=== PATIENT | female | born 1995 | race Caucasian/White ===

== ENCOUNTER 2023-05-18 20:26 | Outpatient (REF) | payer BC, SELFPAY ==
[2023-05-22 19:08] LABS: Age Gdln ACOG Testing Note (.); IGP, rfx Aptima HPV ASCU Note (.)
== END 2023-05-18 20:27 | disposition home or self-care (01) ==
LOC: LAB 20:26
PROVIDERS: Visit Provider Physician Assistant
DX: Z01.419 Encounter for gynecological examination (general) (routine) without abnormal findings (principal)
CPT/HCPCS: G0145

== ENCOUNTER 2023-11-20 14:56 | Outpatient (OUT) | payer BC, SELFPAY ==
--- NOTE | 2023-11-20 14:57 | US_ITS ---
The [address] [address] Patient Name: BHARATH HARO MRN: [id number] date: 1995 Sex: F Assigned Patient Location: Current Patient Location: Accession/Order Number: [id number] Exam Date: 11/20/2023 15:00 Report Date: 11/21/2023 06:48 At the request of: AMI IVY Procedure: US pelvis w/ transvaginal EXAMINATION: US pelvis w/ transvaginal HISTORY: Pelvic Pain COMPARISON: No relevant comparison available. TECHNIQUE: Transabdominal and/or transvaginal sonographic examination was performed as indicated by examination type. FINDINGS: UTERUS: Bicornuate uterus. Uterus size: 9.2 x 7.1 x 4.8 cm. ENDOMETRIUM: Normal homogeneous appearance. Endometrial thickness: 6 mm RIGHT OVARY: Normal size and appearance. Duplex Doppler demonstrates normal waveform and flow; resistive index 0.7. Ovary size: 3.4 x 3.4 x 1.9 cm LEFT OVARY: Normal size and appearance. Duplex Doppler demonstrates normal waveform and flow; resistive index 0.5. Ovary size: 3.0 x 2.5 x 1.9 cm CUL-DE-SAC: Small amount of fluid in pelvic cul-de-sac, likely physiologic. BLADDER: Unremarkable. OTHER: None. US/US pelvis w/ transvaginal IMPRESSION: 1. Bicornuate uterus. 2. Small amount of free fluid within pelvic cul-de-sac, likely physiologic. Possibly recently ruptured ovarian cyst. 3. No acute findings to account for patient's symptoms. Electronically authenticated by: MARLIN SAINI Date: 11/21/2023 06:48
== END 2023-11-20 14:57 | disposition home or self-care (01) ==
LOC: US 14:56
PROVIDERS: Visit Provider Physician Assistant
DX: R10.2 Pelvic and perineal pain (principal); Q51.3 Bicornate uterus
CPT/HCPCS: 76830; 76856

== ENCOUNTER 2024-06-07 18:22 | Outpatient (REF) | payer BC, SELFPAY ==
--- OUTSIDE RECORDS SUMMARY | 2024-06-07 18:27 | XMS_ITS | CCD ---
Author Organization [facility] Care Team Providers Care Information Systems Security Analyst Name Role Phone Provider, None Primary Care Unavailable OMKAR, DR CAMPBELL Consulting Unavailable MISC, DR HERRON Primary Care Unavailable DR SHANNAN ESPITIA Attending Unavailable OMKAR, DR CAMPBELL Admitting Unavailable Efra UPPER LINING CEMENTER - Jayne MCCOLLUM Primary Care Provider JAYNE KRAUS Referring Unavailable EFRA, JAYNE Primary Care Unavailable EFRAJAYNE LOREDO Referring Unavailable EFRA, JAYNE Primary Care Unavailable BIJU, PATRICIA Attending Unavailable BIJU, PATRICIA Attending Unavailable BIJU, PATRICIA Attending Unavailable BIJU, PATRICIA Attending Unavailable BIJU, PATRICIA Attending Unavailable BIJU, PATRICIA Attending Unavailable Unavailable Primary Care Provider Unavailabl e Medications Current Medications Medication Drug Class(es) Dates Sig (Normalized) Sig (Original) Clindamycin (2 sources) Lincosamide Antibacterial Start: 11-19-2023 End: 11-19-2023 Clindamycin Phosphate (Xaciato) 2 % gel Indications: BV (bacterial vaginosis) Insert 1 Application into the vagina 1 time for 1 dose 1 g 11/19/2023 11/19/2023 Active etonogestrel 68 mg drug implant (3 sources) Progestin Start: 06-10-2023 End: 06-09-2026 etonogestrel-elutin g 68 mg contraceptive implant 1 each ferrous sulfate 325 mg oral tablet (5 sources) Start: 04-12-2024 take 1 tablet by mouth once daily Ferrous Sulfate 325 mg (65 mg iron) tablet Active 325 MG PO Daily April 12, 2024 12:00am take 1 tablet by mouth at mealti me ferrous sulfate 325 (65 Fe) MG tablet Take 325 mg by mouth in the morning. Take with meals. Active methylPREDNISolone 4 mg oral tablet (3 sources) Corticosteroid Start: 04-21-2024 take 1 tablet by mouth once Methylprednisolone (Medrol (Erick)) 4 mg tablets,dose pack Active 0 PO per package directions April 21, 2024 12:00am PO PER PKG DIR for 6 days Start: 12-11-2023 End: 04-12-2024 take 1 tablet by mouth once Methylprednisolone (Medrol (Erick)) 4 mg tablets,dose pack Discontinued 0 PO per package directions December 10, 2023 11:00pm April 12, 2024 1:30pm PO PER PKG DIR Completed/Discontinued Medications Medication Drug Class(es) Dates Sig (Normalized) Sig (Original) amoxicillin 500 mg oral capsule (2 sources) Penicillin-class Antibacterial Start: 12-11-2023 End: 04-12-2024 take 1 capsule by mouth twice daily Amoxicillin 500 mg capsule Discontinued 500 MG PO Twice daily 20 December 10, 2023 11:00pm April 12, 2024 1:31pm azithromycin 500 mg oral tablet (3 sources) Macrolide Antimicrobial Start: 12-09-2023 End: 04-12-2024 Azithromycin 500 mg tablet Discontinued MG PO December 08, 2023 11:00pm April 12, 2024 1:30pm Start: 12-09-2023 Azithromycin A ctive MG PO December 09, 2023 12:00am Ciprofloxacin-Dexamethasone 0.3-0.1 % drops,suspension (2 sources) Start: 12-09-2023 End: 04-12-2024 Ciprofloxacin-Dexamethasone 0.3-0.1 % drops,suspension Discontinued 4 DROPS OTIC Twice daily 7.5 7 December 08, 2023 11:00pm April 12, 2024 1:30pm doxycycline hyclate 100 mg o ral tablet (3 sources) Tetracyc line-cla ss Drug Start: 12-09-2023 End: 04-12-2024 Doxycycline Hyclate 100 mg capsule Discontinued MG PO December 08, 2023 11:00pm April 12, 2024 1:30pm Start: 12-09-2023 Doxycycline Hy clate Active MG PO December 09, 2023 12:00am metroNIDAZOLE 500 mg oral tablet (3 sources) Nitroimidazole Antimicrobial Start: 12-09-2023 End: 04-12-2024 Metronidazole 500 mg tablet Discontinued MG PO December 08, 2023 11:00pm April 12, 2024 1:37pm Start: 12-09-2023 Metronidazole Active MG PO December 09, 2023 12:00am moxifloxacin 400 mg oral tablet (3 sources) Quinolone Antimicrobial Start: 12-09-2023 End: 04-12-2024 Moxifloxacin 400 mg tablet Discontinued MG PO December 08, 2023 11:00pm April 12, 2024 1:37pm Start: 12-09-2023 Moxifloxacin A ctive MG PO December 09, 2023 12:00am ondansetron 4 mg disintegrating oral tablet (2 sources) Serotonin-3 Receptor Antagonist Start: 04-12-2024 End: 04-21-2024 take 1 tablet by mouth every eight hours as needed for nausea and vomiting Ondansetron 4 mg tablet,disintegrating Discontinued 4 MG PO Every 8 hours as needed for nausea and vomiting 15 5 April 12, 2024 12:00am April 21, 2024 4:53pm Problems Active Problems Problem Classification Problem Date Documented Da te Episodic/Chronic Immunizations and screening for infectious disease (1 source) Contact with or exposure to other viral diseases; Translations: [Contact with or suspected exposure to severe acute respiratory syndrome coronavirus 2 (SARS-CoV-2)] 04-21-2024 Episodic Influenza (2 sources) Influenza due to Influenza A virus; Translations: [Influenza due to other identified influenza virus with other respiratory manifestations] 04-21-2024 Episodic Intestinal infection (4 sources) Viral gastroenteritis; Translations: [Viral intestinal infection, unspecified] 04-12-2024 Episodic Nutritional deficiencies (2 sources) Iron deficiency; Translations: [Iron deficiency] 04-12-2024 Episodic Other upper respiratory infections (2 sources) Upper respiratory infection; Translations: [Acute upper respiratory infection, unspecified] 12-09-2023 Episodic Otitis media and related conditions (2 sources) Acute right otitis media; Translations: [Otitis media, unspecified, right ear] 12-09-2023 Episodic Substance-related disorders (2 sources) Opioid dependence, uncomplicated; Translations: [Opioid dependence, uncomplicated] Onset: 01-07-2022 Chronic Past or Other Problems Problem Classification Problem Date Documented Da te Episodic/Chronic Fever of unknown origin (4 sources) Fever, unspecified; Translations: [FEVER UNSPECIFIED] Onset: 06-01-2019 Episodic Inflammatory diseases of female pelvic organs (2 sources) Bacterial vaginosis; Translations: [Acute vaginitis] 11-19-2023 Episodic Other aftercare (2 sources) Patient encounter status; 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 [address] Hand Alterations Tailor: Fabricio Rucker MD #### HIVHEMA, PHEP #### [address] [phone] Hand Alterations Tailor: Milton Cárdenas MD Hematocrit (Bld) [Volume fraction] 37.3 % Normal 36.3-47.1 [facility] Comment on above: Performed By: #### C LYLE CP, HCG #### [address] [place] [place] [address] Hand Alterations Tailor: Fabricio Rucker MD #### HIVHEMA, PHEP #### [address] [phone] Hand Alterations Tailor: Milton Cárdenas MD Hemoglobin (Bld) [Mass/Vol] 10.9 g/dL Low 11.9-15.1 [facility] Comment on above: Performed By: #### C LYLE, CP, HCG #### [address] [place] [address] Hand Alterations Tailor: Fabricio Rucker MD #### HIVHEMA, PHEP #### [address] [phone] Hand Alterations Tailor: Milton Cárdenas MD MCH (RBC) [Entitic mass] 21.4 pg Low 25.2-33.5 [facility] Comment on above: Performed By: #### C LYLE, CP, HCG #### [address] [place] [phone] Hand Alterations Tailor: Fabricio Rucker MD #### HIVCMB, PHEP #### [address] [phone] Hand Alterations Tailor: Milton Cárdenas MD MCHC (RBC) [Mass/Vol] 29.2 g/dL Normal 28.4-34.8 [facility] Comment on above: Performed By: #### C BC, CP, HCG #### [facility] [address] [place] [address] [place] [phone] Hand Alterations Tailor: Fabricio Rucker MD #### HIVCMB, PHEP #### [address] [phone] Hand Alterations Tailor: Milton Cárdenas MD MCV (RBC) [Entitic vol] 73.1 fL Low 82.6-102.9 [facility] Comment on above: Performed By: #### C BC, CP, HCG #### [address] [place] [phone] Hand Alterations Tailor: Fabricio Rucker MD #### HIVCMB, PHEP #### [address] [phone] Hand Alterations Tailor: Milton Cárdenas MD NRBC Automated 0.0 per 100 WBC Normal 0.0 [facility] Comment on above: Performed By: #### C BC, CP, HCG #### [address] [place] [phone] Hand Alterations Tailor: Fabricio Rucker MD #### HIVCMB, PHEP #### [address] [phone] Hand Alterations Tailor: Milton Cárdenas MD Platelet mean volume (Bld) [Entitic vol] 9.8 fL Normal 8.1-13.5 [facility] Comment on above: Performed By: #### C BC, CP, HCG #### [facility] [address] [place], [place] [phone] Hand Alterations Tailor: Fabricio Rucker MD #### HIVCMB, PHEP #### [place] [address] [place] [address] Hand Alterations Tailor: Milton Cárdenas MD Platelets (Bld) [#/Vol] 310 10*3/uL Normal 138-453 [facility] Comment on above: Performed By: #### C BC, CP, HCG #### [facility] [address] [place], [place] [phone] Hand Alterations Tailor: Fabricio Rucker MD #### HIVCMB, PHEP #### [address] [address] Hand Alterations Tailor: Milton Cárdenas MD RBC (Bld) [#/Vol] 5.10 10*6/uL Normal 3.95-5.11 [facility] Comment on above: Performed By: #### C BC, CP, HCG #### [address] [place] [phone] Hand Alterations Tailor: Fabricio Rucker MD #### HIVCMB, PHEP #### [address] [address] Hand Alterations Tailor: Milton Cárdenas MD WBC (Bld) [#/Vol] 6.4 10*3/uL Normal 3.5-11.3 [facility] Comment on above: Performed By: #### C BC, CP, HCG #### [facility] [address] [place] [phone] Hand Alterations Tailor: Fabricio Rucker MD #### HIVCMB, PHEP #### [place] [place] [address] Hand Alterations Tailor: Milton Cárdenas MD Hematocrit (Bld) [Volume fraction] 37.3 % 36.3 - 47.1 % [facility] Hemoglobin (Bld) [Mass/Vol] 10.9 g/dL Low 11.9 - 15.1 g/dL [facility] Interpretation and review of laboratory results Abnormal [facility] MCH (RBC) [Entitic mass] 21.4 pg Low 25.2 - 33.5 pg [facility] MCHC (RBC) [Mass/Vol] 29.2 g/dL 28.4 - 34.8 g/dL [facility] MCV (RBC) [Entitic vol] 73.1 fL Low 82.6 - 102.9 fL [facility] NRBC Automated 0.0 0.0 per 100 WBC [facility] Platelet distribution width (Bld) [Ratio] 17.0 % High 11.8 - 14.4 % [facility] Platelet mean volume (Bld) [Entitic vol] 9.8 fL 8.1 - 13.5 fL [facility] Platelets (Bld) [#/Vol] 310 10*3/uL [facility] RBC (Bld) [#/Vol] 5.10 10*6/uL 3.95 - 5.11 m/uL [facility] WBC (Bld) [#/Vol] 6.4 10*3/uL [facility] Comp Metabolic Profon 2021 Albumin [Mass/Vol] 4.7 g/dL Normal 3.5-5.2 [facility] Comment on above: Performed By: #### C BC, CP, HCG #### [facility] [address] [place] [address] Hand Alterations Tailor: Fabricio Rucker MD #### HIVCMB, PHEP #### [facility] [address] [place] [address] Hand Alterations Tailor: Milton Cárdenas MD Albumin/Glob Ratio 1.4 Normal 1.0-2.5 [facility] Comment on above: Performed By: #### C BC, CP, HCG #### [facility] [address] [place], [place] [phone] Hand Alterations Tailor: Fabricio Rucker MD #### HIVCMB, PHEP #### [address] [address] Hand Alterations Tailor: Milton Cárdenas MD Alkaline Phos 93 U/L Normal 35-104 [facility] Comment on above: Performed By: #### C BC, CP, HCG #### [address] [place], [place] [phone] Hand Alterations Tailor: Fabricio Rucker MD #### HIVCMB, PHEP #### [address] [phone] Hand Alterations Tailor: Milton Cárdenas MD ALT [Catalytic activity/Vol] 13 U/L Normal 5-33 [facility] Comment on above: Performed By: #### C BC, CP, HCG #### [address] [place] [phone] Hand Alterations Tailor: Fabricio Rucker MD #### HIVCMB, PHEP #### [address] [address] Hand Alterations Tailor: Milton Cárdenas MD Anion gap [Moles/Vol] 11 mmol/L Normal 9-17 [facility] Comment on above: Performed By: #### C BC, CP, HCG #### [address] [place], [place] [phone] Hand Alterations Tailor: Fabricio Rucker MD #### HIVCMB, PHEP #### [address] [address] Hand Alterations Tailor: Milton Cárdenas MD AST [Catalytic activity/Vol] 19 U/L Normal <32 [facility] Comment on above: Performed By: #### C BC, CP, HCG #### [address] [place], [place] [phone] Hand Alterations Tailor: Fabricio Rucker MD #### HIVCMB, PHEP #### [facility] [address] [place], [place] [phone] Hand Alterations Tailor: Milton Cárdenas MD Bilirubin [Mass/Vol] 0.6 mg/dL Normal 0.3-1.2 [facility] Comment on above: Performed By: #### C BC, CP, HCG #### [facility] [address] [place] [address] [place] [address] Hand Alterations Tailor: Fabricio Rucker MD #### HIVCMB, PHEP #### [place] [address] [place], [place] [phone] Hand Alterations Tailor: Milton Cárdenas MD BUN/CRE Ratio 22 High 9-20 [facility] Comment on above: Performed By: #### C BC, CP, HCG #### [facility] [address] [place] [address] Dr. [place] [phone] Hand Alterations Tailor: Fabricio Rucker MD #### HIVCMB, PHEP #### [address] [phone] Hand Alterations Tailor: Milton Cárdenas MD Calcium [Mass/Vol] 9.5 mg/dL Normal 8.6-10.4 [facility] Comment on above: Performed By: #### C BC, CP, HCG #### [facility] [address] [place] [address] Dr. [place] [phone] Hand Alterations Tailor: Fabricio Rucker MD #### HIVCMB, PHEP #### [place] [address] [place], [place] [phone] Hand Alterations Tailor: Milton Cárdenas MD Chloride [Moles/Vol] 102 mmol/L Normal 98-107 [facility] Comment on above: Performed By: #### C BC, CP, HCG #### [facility] [address] [place] [address] Hand Alterations Tailor: Fabricio Rucker MD #### HIVCMB, PHEP #### [facility] [address] [place], [place] 1886808 Hand Alterations Tailor: Milton Cárdenas MD CO2 [Moles/Vol] 23 mmol/L Normal 20-31 [facility] Comment on above: Performed By: #### C BC, CP, HCG #### [facility] [address] [place] [address] Hand Alterations Tailor: Fabricio Rucker MD #### HIVCMB, PHEP #### [place] [place], [place] [phone] Hand Alterations Tailor: Milton Cárdenas MD Creatinine [Mass/Vol] 0.54 mg/dL Normal 0.50-0.90 [facility] Comment on above: Performed By: #### C BC, CP, HCG #### [facility] [address] [place] [address] [place] [address] Hand Alterations Tailor: Fabricio Rucker MD #### HIVCMB, PHEP #### [address] [phone] Hand Alterations Tailor: Milton Cárdenas MD GFR/1.73 sq M.predicted among non-blacks MDRD (S/P/Bld) [Vol rate/Area] mL/min/{1.73_m2} Normal >60 [facility] Comment on above: Result Comment: Effective Dec 16, 2021 These results are not intended for use in patients <18 years of age. eGFR results are calculated without a race factor using the 2020 CKD-EPI equation. Careful clinical correlation is recommended, particularly when comparing to results calculated using previous equations. The CKD-EPI equation is less accurate in patients with extremes of muscle mass, extra-renal metabolism of creatine, excessive creatine ingestion, or following therapy that affects renal tubular secretion. Performed By: #### C BC, CP, HCG #### [facility] [address] [place] [address] Hand Alterations Tailor: Fabricio Rucker MD #### HIVCMB, PHEP #### [place] [address] [place] [address] Hand Alterations Tailor: Milton Cárdenas MD Glucose [Mass/Vol] 78 mg/dL Normal 70-99 [facility] Comment on above: Performed By: #### C BC, CP, HCG #### [facility] [address] [place] [address] Dr. [place], [place] [phone] Hand Alterations Tailor: Fabricio Rucker MD #### HIVCMB, PHEP #### [address] [address] Hand Alterations Tailor: Milton Cárdenas MD Potassium [Moles/Vol] 4.3 mmol/L Normal 3.7-5.3 [facility] Comment on above: Performed By: #### C BC, CP, HCG #### [address] [place] [phone] Hand Alterations Tailor: Fabricio Rucker MD #### HIVCMB, PHEP #### [address] [address] Hand Alterations Tailor: Milton Cárdenas MD Protein [Mass/Vol] 8.1 g/dL Normal 6.4-8.3 [facility] Comment on above: Performed By: #### C BC, CP, HCG #### [facility] [address] [place] [address] Dr. [place] [phone] Hand Alterations Tailor: Fabricio Rucker MD #### HIVCMB, PHEP #### [address] [address] Hand Alterations Tailor: Milton Cárdenas MD Sodium [Moles/Vol] 136 mmol/L Normal 135-144 [facility] Comment on above: Performed By: #### C BC, CP, HCG #### [facility] [address] [place] [address] Dr. [place], [place] [phone] Hand Alterations Tailor: Fabricio Rucker MD #### HIVCMB, PHEP #### [facility] [address] [place], [place] [phone] Hand Alterations Tailor: Milton Cárdenas MD Urea nitrogen [Mass/Vol] 12 mg/dL Normal 6-20 [facility] Comment on above: Performed By: #### C BC, CP, HCG #### [facility] [address] [place] [address] Hand Alterations Tailor: Fabricio Rucker MD #### HIVCMB, PHEP #### [facility] [address] [place] [address] Hand Alterations Tailor: Milton Cárdenas MD Comprehensive Metabolic [facility]ane [facility] 01-07-2022 Albumin [Mass/Vol] 4.7 g/dL 3.5 - 5.2 g/dL [facility] Albumin/Globulin [Mass ratio] 1.4 {ratio} 1.0 - 2.5 [facility] ALP (Bld) [Catalytic activity/Vol] 93 U/L 35 - 104 U/L [facility] ALT [Catalytic activity/Vol] 13 U/L 5 - 33 U/L [facility] Anion gap [Moles/Vol] 11 mmol/L 9 - 17 mmol/L [facility] AST [Catalytic activity/Vol] 19 U/L NINF - 32 U/L [facility] Bilirubin [Mass/Vol] 0.6 mg/dL 0.3 - 1.2 mg/dL [facility] Calcium [Mass/Vol] 9.5 mg/dL 8.6 - 10.4 mg/dL [facility] Chloride [Moles/Vol] 102 mmol/L 98 - 107 mmol/L [facility] CO2 [Moles/Vol] 23 mmol/L 20 - 31 mmol/L [facility] Creatinine [Mass/Vol] 0.54 mg/dL 0.50 - 0.90 mg/dL [facility] GFR/1.73 sq M.predicted MDRD (S/P/Bld) [Vol rate/Area] - PINF [facility] Comment on above: Effective Dec 16, 2021 These results are not intended for use in patients <18 years of age. eGFR results are calculated without a race factor using the 2020 CKD-EPI equation. Careful clinical correlation is recommended, particularly when comparing to results calculated using previous equations. The CKD-EPI equation is less accurate in patients with extremes of muscle mass, extra-renal metabolism of creatine, excessive creatine ingestion, or following therapy that affects renal tubular secretion. Glucose [Mass/Vol] 78 mg/dL 70 - 99 mg/dL [facility] Interpretation and review of laboratory results Abnormal [facility] [employer] Potassium [Moles/Vol] 4.3 mmol/L 3.7 - 5.3 mmol/L [facility] Protein [Mass/Vol] 8.1 g/dL 6.4 - 8.3 g/dL [facility] Sodium [Moles/Vol] 136 mmol/L 135 - 144 mmol/L [facility] Urea nitrogen (BldV) [Mass/Vol] 12 mg/dL 6 - 20 mg/dL [facility] Urea nitrogen/Creatinine (Bld) [Mass ratio] 22 High 9 - 20 [facility] [employer] HCG Qualitative, Serumon hCG Qual Negative NEGATIVE [facility] Comment on above: Specimens with hCG l evels near the threshold of the test (25 mIU/mL) may give a negative or indeterminate result. In such cases, another test should be performed with a new specimen in 48-72 hours. If early is suspected clinically in this setting, correlation with quantitative serum b-hCG level is suggested. [id number] has confirmed the use of plasma for this test. This has not been cleared or approved by the U.S. Food and Drug Administration. The FDA has determined that such clearance is not necessary. [facility] [employer] HCG Screen, Bloodon 01-08-20 HCG Screen, Blood Negative Normal NEG [facility] Comment on above: Result Comment: Spec imens with hCG levels near the threshold of the test (25 mIU/mL) may give a negative or indeterminate result. In such cases, another test should be performed with a new specimen in 48-72 hours. If early is suspected clinically in this setting, correlation with quantitative serum b-hCG level is suggested. [id number] has confirmed the use of plasma for this test. This has not been cleared or approved by the U.S. Food and Drug Administration. The FDA has determined that such clearance is not necessary. Performed By: #### C LYLE CP, HCG #### [address] [place] [address] Hand Alterations Tailor: Fabricio Rucker MD #### HIVCMB, PHEP #### [facility] [address] [place] [address] Hand Alterations Tailor: Milton Cárdenas MD HIV Ag/Abon 01-07-2022 HIV Ag/Ab Non-Reactive Normal [facility] Comment on above: Result Comment: No l aboratory evidence of HIV infection. If acute HIV infection is suspected, consider testing for HIV-1 RNA. Performed By: #### C AMEYA ALVARENGA, HCG #### [address] [place] [address] Hand Alterations Tailor: Fabricio Rucker MD #### HIVCMB, PHEP #### [place] [address] [place] [address] Hand Alterations Tailor: Milton Cárdenas MD HIV Screenon 01-07-2022 HIV Ag/Ab Non-Reactive NONREACTIVE [facility] Comment on above: No laboratory eviden ce of HIV infection. If acute HIV infection is suspected, consider testing for HIV-1 RNA. [facility] Hepatitis Acute Tania 01-07 Hep A Ab,IgM Non-Reactive Normal NR [facility] Comment on above: Performed By: #### C LYLE CP, HCG #### [address] [place] [address] Hand Alterations Tailor: Fabricio Rucker MD #### HIVCMB, PHEP #### [facility] [address] [place] [address] Hand Alterations Tailor: Milton Cárdenas MD Hep B Core Ab,IgM Non-Reactive Normal [facility] Comment on above: Performed By: #### C LYLE CP, HCG #### [facility] [address] [place] [address] [place], [place] [phone] Hand Alterations Tailor: Fabricio Rucker MD #### HIVCMB, PHEP #### [place] [address] [place], [place] [phone] Hand Alterations Tailor: Milton Cárdenas MD Hep B Surf Ag Non-Reactive Normal [facility] Comment on above: Performed By: #### C AMEYA ALVARENGA, HCG #### [facility] [address] [place] [address] [place], [place] [phone] Hand Alterations Tailor: Fabricio Rucker MD #### HIVCMBrennen, PHEP #### [place] [place], [place] 1011108 Hand Alterations Tailor: Milton Cárdenas MD Hep C Ab Non-Reactive Normal [facility] Comment on above: Result Comment: The hepatitis C procedure used in our laboratory is a Chemiluminescent test specific for three recombinant HCV antigens. A negative anti-HCV result indicates that the antibodies to hepatitis C virus are not present at this time. Individuals with reactive anti-HCV should be considered infected and infectious until proven otherwise. Confirmation of all equivocal or reactive results is recommended by ordering HCV RNA by PCR. Performed By: #### C AMEYA ALVARENGA, HCG #### [address] [place], [place] [phone] Hand Alterations Tailor: Fabricio Rucker MD #### HIVCMBrennen, PHEP #### [place] [place], [place] [phone] Hand Alterations Tailor: Milton Cárdenas MD Hepatitis Panel, Acute HAV IgM IA Qn (S) Non-Reactive NONREACTIVE [facility] Hep B Core Ab, IgM Non-Reactive NONREACTIVE [facility] Hepatitis B Surface Ag Non-Reactive NONREACTIVE [facility] Hepatitis C Ab Non-Reactive NONREACTIVE [facility] Comment on above: The hepatitis C procedure used in our laboratory is a Chemiluminescent test specific for three recombinant HCV antigens. A negative anti-HCV result indicates that the antibodies to hepatitis C virus are not present at this time. Individuals with reactive anti-HCV should be considered infected and infectious until proven otherwise. Confirmation of all equivocal or reactive results is recommended by ordering HCV RNA by PCR. [facility] Lab - Toxicology Resultson 0 03-29-2018 Lab - Toxicology Results [id number]. [facility] Lab - Toxicology Resultson 0 03-18-2018 Lab - Toxicology Results [id number]. [facility] Lab - AP Resultson 9 Lab - AP Results [id number]. [facility] Nicotine Metabolite, Urine L Con 03-17-2018 Cotinine LC Negative Pgybpf=[id number] [facility] Comment on above: Result Comment: Perf ormed At: [facility] [address] [facility] [place] [id number] Diaz Pate PhD Ph:[phone] Performed By: #### 1 [id number] #### [facility] (DEFAULT) [address] [place] [address] T-Spoton 03-17-2018 T-Spot See Report Normal [facility] Comment on above: Performed By: #### 5 [id number] #### [facility] (DEFAULT) [address] [place] [address] Measles/Mumps/Rubella Immuni ty LCon 03-13-2018 Mumps Abs, IgG LC 18.9 AU/mL Immune >10.9 [facility] Comment on above: Result Comment: Nega tive <9.0 Equivocal 9.0 - 10.9 Positive >10.9 A positive result generally indicates past exposure to Mumps virus or previous vaccination. Performed At: [facility] [id number] Madan Trammell PhD Ph:[phone] Performed By: #### 5 [id number], [id number] #### [facility] (DEFAULT) [address] [place] [address] Rubella Antibodies, IgG LC 1.12 index Immune >0.99 [facility] Comment on above: Result Comment: Non- immune <0.90 Equivocal 0.90 - 0.99 Immune >0.99 Performed By: #### 5 [id number], [id number] #### [facility] (DEFAULT) [address] [place] [address] Rubeola Ab, IgG, EIA LC <25.0 Low Immune >29.9 [facility] Comment on above: Result Comment: Nega tive <25.0 Equivocal 25.0 - 29.9 Positive >29.9 Presence of antibodies to Rubeola is presumptive evidence of immunity except when acute infection is suspected. Performed By: #### 5 [id number], [id number] #### [facility] (DEFAULT) [address] [place] [address] Vital Signs Date Time Vital Sign Value Performing Clinician Facility 04-21-2024 16:53-0500 Body height 154.94 cm [facility] 04-21-2024 16:53-0500 Body mass index (BMI) [Ratio] 20.4 kg/m2 [facility] 04-21-2024 16:53-0500 Body temperature 96.8 [degF] [facility] 04-21-2024 16:53-0500 Body weight 49.04 kg [facility] 04-21-2024 16:53-0500 Diastolic blood pressure 61 mm[Hg] [facility] 04-21-2024 16:53-0500 Heart rate 86 /min [facility] 04-21-2024 16:53-0500 Respiratory rate 19 /min [facility] 04-21-2024 16:53-0500 SaO2% (BldA) [Mass fraction] 99 % [facility] 04-21-2024 16:53-0500 Systolic blood pressure 113 mm[Hg] [facility] 04-12-2024 13:32-0500 Body height 154.94 cm [facility] 04-12-2024 13:32-0500 Body mass index (BMI) [Ratio] 20.9 kg/m2 [facility] 04-12-2024 13:32-0500 Body temperature 99.1 [degF] [facility] 04-12-2024 13:32-0500 Body weight 50.46 kg [facility] 04-12-2024 13:32-0500 Diastolic blood pressure 65 mm[Hg] [facility] 04-12-2024 13:32-0500 Heart rate 84 /min [facility] 04-12-2024 13:32-0500 Respiratory rate 14 /min [facility] 04-12-2024 13:32-0500 SaO2% (BldA) [Mass fraction] 99 % [facility] 04-12-2024 13:32-0500 Systolic blood pressure 103 mm[Hg] [facility] 12-09-2023 17:50-0400 Body height 154.94 cm [facility] 12-09-2023 17:50-0400 Body mass index (BMI) [Ratio] 26.8 kg/m2 [facility] 12-09-2023 17:50-0400 Body temperature 97.7 [degF] [facility] 12-09-2023 17:50-0400 Body weight 64.43 kg [facility] 12-09-2023 17:50-0400 Diastolic blood pressure 68 mm[Hg] [facility] 12-09-2023 17:50-0400 Heart rate 66 /min [facility] 12-09-2023 17:50-0400 Respiratory rate 18 /min [facility] 12-09-2023 17:50-0400 SaO2% (BldA) [Mass fraction] 99 % [facility] 12-09-2023 17:50-0400 Systolic blood pressure 115 mm[Hg] [facility] 11-19-2023 15:30-0400 Body mass index (BMI) [Ratio] 21.5 kg/m2 Patricia ARROYO Work Phone: [facility] 11-19-2023 15:30-0400 Body weight 51.62 kg Patricia ARROYO Work Phone: [facility] 11-19-2023 15:30-0400 Diastolic blood pressure 50 mm[Hg] Patricia ARROYO Work Phone: [facility] 11-19-2023 15:30-0400 Systolic blood pressure 100 mm[Hg] Patricia ARROYO Work Phone: [facility] Healthcare Encounters Encounter Date Encounter Type Care Provider Facility Start: 04-21-2024 End: 04-21-2024 ambulatory [facility] Work Phone: Start: 04-21-2024 End: 04-21-2024 Patient encounter procedure [facility] Work Phone: Start: 04-12-2024 End: 04-12-2024 ambulatory [facility] Work Phone: Start: 04-12-2024 End: 04-12-2024 Patient encounter procedure [facility] Work Phone: Start: 12-09-2023 End: 12-09-2023 ambulatory [facility] Work Phone: Start: 12-09-2023 End: 12-09-2023 Patient encounter procedure [facility] Work Phone: Start: 11-19-2023 End: 11-19-2023 Office outpatient visit 15 minutes Patricia ARROYO Work Phone: [facility] Comment on above: Follow-up encounter involving medication; BV (bacterial vaginosis) Start: 11-19-2023 End: 11-19-2023 ambulatory PATRICIA IVY Not Available Start: 11-19-2023 End: 11-19-2023 Bamboo flowsheet Patricia ARROYO Work Phone: [facility] Start: 11-19-2023 End: 11-19-2023 Bamboo flowsheet Patricia ARROYO Work Phone: [facility] Start: 10-22-2023 End: 10-22-2023 ambulatory PATRICIA IVY Not Available Start: 08-19-2023 End: 08-19-2023 ambulatory PATRICIA IVY Not Available Start: 07-13-2023 End: 07-13-2023 ambulatory PATRICIA FLOWEREY Not Available Start: 06-10-2023 End: 06-10-2023 ambulatory PATRICIA BIJU Not Available Start: 05-18-2023 End: 05-18-2023 ambulatory PATRICIA IVY Not Available Start: 01-07-2022 End: 01-08-2022 ambulatory [facility] Start: 01-07-2022 End: 01-07-2022 Subsequent hospital visit by physician Jayne Treviño CNP Work Phone: [facility] Laboratory Start: 01-28-2021 End: 01-29-2021 ambulatory [facility] Start: 06-01-2019 End: 06-01-[address] SHANNAN ESPITIA Facility: Start: 03-13-2018 End: 03-13-2018 Patient encounter procedure None Provider Facility:[facility] Procedures Date Procedure Procedure Detail Performing Clinician Start: 01-07-2022 Antibody hiv-1&hiv-2 single result Jayne Treviño CNP Work Phone: Start: 01-07-2022 Comprehensive metabo lic panel Jayne Treviño CNP Work Phone: Plan of Treatment Date Care Activity Detail Author Start: 05-24-2024 End: 05-24-2024 Patient encounter procedure 05/24/2024 2:00 PM EDT Office Visit [facility] [address] [place] [address] Pawan Garcia DO [address] [place], [place] [id number] [facility] Start: 11-19-2023 End: 11-19-2023 Patient encounter procedure 11/19/2023 3:10 PM EDT Office Visit [facility] [address] [place] [address] Patricia Ivy, PA [address] [place] [address] [phone] (work) Arrived [facility] Comment on above: Arrived Start: 10-14-2021 Influenza vaccination Flu vaccine (# 1) [facility] Start: 10-03-2014 DTaP/Tdap/Td vaccine (1 - Tdap) DTaP/Tdap/Td vaccine (1 - Tdap) [facility] Start: 04-05-1996 COVID-19 Vaccine (#1) COVID-19 Vacci ne (#1) [facility] Payers Date Payer Category Payer Unknown BCBS BCBS xxxxxx [id number] 2023-Present [phone] [address] [place] [address] [id number] 2023 Unknown [id number] 2019 Unknown [id number] 1995 Unknown [id number] 1995 Unknown [id number] 1995 Unknown [id number] 1995 Unknown [id number] 1995 Unknown [id number] 1995 Unknown [id number] 1995 Unknown [id number] 1995 Unknown [id number] 1995 Unknown [id number] 1959 Unknown [id number] Social History Date Type Detail Facility Start: 08-28-2022 Tobacco smoking status NHIS Tobacco smoking consumption unknown [facility] Start: 1995 Sex Assigned At Not on file [facility] [employer] Work Phone: Start: 1995 Sex Assigned At Female F [facility] Gender identity Not on file [facility] are Start: 04-12-2024 End: 04-21-2024 Sex Female (finding) [facility] Evaluation note 04-12-2024 Note Date & Type Note Facility 04-12-2024 Evaluation note Diagnosis Onset Date Resolution Viral gastroenteritis acute Mar 1:12pm Influenza A acute April 21, 2024 4:38pm Contact with or suspected exposure to severe acute respiratory syndrome noneactive April 4:38pm [facility] Work Phone: History of Present illness Narrative 11-19-2023 DINA Schaefer - 11/19/2023 3:10 PM EDT Note Date & Type Note Facility 11-19-2023 History of Presen t illness Narrative erasto Reason for Appointment: Patient ID: Ester Barrientos is a 28 y.o. female who presents for follow up visit Patient presents today for Acute Visit. MEDICATIONS Current Outpatient Medications Medication Instructions ferrous sulfate 325 mg, Oral, Daily with breakfast ALLERGIES No Known Allergies PROBLEMS Active Ambulatory Problems Diagnosis Date Noted No Active Ambulatory Problems Resolved Ambulatory Problems Diagnosis Date Noted No Resolved Ambulatory Problems Past Medical History: Diagnosis Date Rectal bleeding Status post cervical polyp removal UTI (urinary tract infection) Vaginal discharge Yeast infection HISTORY PAST MEDICAL HISTORY SOCIAL HISTORY Past Medical History: Diagnosis Date Rectal bleeding Status post cervical polyp removal UTI (urinary tract infection) Vaginal discharge Yeast infection Social History Tobacco Use Smoking status: Not on file Smokeless tobacco: Not on file Substance Use Topics Alcohol use: Not on file Drug use: Not on file FAMILY HISTORY Family History Problem Relation Name Age of Onset Diabetes Maternal Grandmother Hypertension Maternal Grandmother Cancer Maternal Grandmother SURGICAL HISTORY Past Surgical History: Procedure Laterality Date CERVICAL POLYPECTOMY CHOLECYSTECTOMY REVIEW OF SYSTEMS Review of Systems: Review of Systems Constitutional: Negative. HENT: Negative. Eyes: Negative. Respiratory: Negative. Cardiovascular: Negative. Gastrointestinal: Negative. Genitourinary: Negative. Musculoskeletal: Negative. Skin: Negative. Neurological: Negative. All other systems reviewed and are negative. Hematological: Negative. Endocrine: Negative. Allergic/Immunologic: Negative. OBJECTIVE Objective: Physical Exam Constitutional: Appearance: Normal appearance. She is well-developed and normal weight. HENT: Head: Normocephalic. Cardiovascular: Rate and Rhythm: Normal rate and regular rhythm. Pulses: Normal pulses. Pulmonary: Effort: Pulmonary effort is normal. Breath sounds: Normal breath sounds. Abdominal: General: Bowel sounds are normal. There is no distension. Palpations: Abdomen is soft. Tenderness: There is abdominal tenderness. There is no guarding or rebound. Comments: Diffuse rlq, no rebound or guarding Musculoskeletal: General: No swelling. Normal range of motion. Right lower leg: No edema. Left lower leg: No edema. Neurological: General: No focal deficit present. Mental Status: She is alert and oriented to person, place, and time. Skin: General: Skin is warm and dry. Psychiatric: Mood and Affect: Mood normal. Behavior: Behavior normal. Thought Content: Thought content normal. Judgment: Judgment normal. Vitals and nursing note reviewed. Exam conducted with a farm or ranch animal caretaker present. Vitals: Estimated body mass index is 21.5 kg/m as calculated from the following: Height as of 08/19/23: 5' 1 . Weight as of this encounter: 113 lb 12.8 oz. BP: 100/50 Patient's last menstrual period was 11/09/2023. ASSESSMENT & PLAN ICD-10-CM 1. Follow-up encounter involving medication Z79.899 2. BV (bacterial vaginosis) N76.0 B96.89 Patient presents to follow up Sti check. Patient states having some thick discharge and feels like BV is back again. Cultures were obtained. Patient does have right sided pain. Patient was advised if she does develop fever/increased pain she does need to report to ER. Patient does have Ultrasound scheduled for Thursday, tomorrow 11/20/23 to have completed and reassured to have this completed and follow up. Patient advised script would be sent. Pt has history of mycoplasma and chronic bv, vaginal cultures repeated today, will send in script or xaciato to pharmacy. Pt will be notified of further tx needed Documented by Renetta Adam LPN on behalf of: DINA Schaefer documented in this encounter [facility] Healthcare Evaluation note Note Date & Type Note Facility Evaluation note No assessment information availa ble [facility] Work Phone: Evaluation note Note Date & Type Note Facility Evaluation note Diagnosis Follow-up encounter involving medication BV (bacterial vaginosis) Unspecified vaginitis and vulvovaginitis documented in this encounter [facility] Evaluation note Note Date & Type Note Facility Evaluation note Diagnosis Onset Date Resolution Viral gastroenteritis acute Mar 1:12pm [facility] Work Phone: Summary Purpose Family History No Family History Records FoundNo Family History Records FoundNo Family History Records FoundNo Family History Records Found Advance Directives Advance Directive Response Recorded Date/ Time Advance Directives No November 5:41pm Advance Directive Response Recorded Date/ Time Advance Directives No November 4:41pm Chief Complaint and Reason for Visit Chief Complaint Ear pain, headache Chief Complaint Admit Date upset stomach, nausea, chills April 122024 1:12pm Reason for Visit Admit Date Viral gastroenteritis April 12, 2024 1:12pm Chief Complaint Admit Date upset stomach, nausea, chills April 122024 1:12pm Cough, congestion, fever, flu expsoure F ebruary 2024 4:38pm Reason for Visit Admit Date Viral gastroenteritis April 12, 2024 1:12pm Influenza A April 21, 2024 4 :38pm Contact with or suspected ex posure to severe acute respiratory syndrome April 21, 2024 4:38pm Additional Source Comments INFORMATION SOURCE (unrecogn ized section and content) DATE CREATED AUTHOR 04/02/2018 [facility] DATE CREATED AUTHOR AUTHOR'S ORGANIZ ATION 06/03/2021 [facility] DATE CREATED AUTHOR AUTHOR'S ORGANIZ ATION 01/08/2022 [facility] DATE CREATED AUTHOR AUTHOR'S ORGANIZ ATION 11/21/2023 [facility] Special[facility] [employer] Care Teams (unrecognized sec tion and content) Information Systems Security Analyst Relationship Specialty Start Date End Date Jayne KrausKEESHA - HOSPICE/HOME HEALTH AIDE [address] [place] [address] PCP - General Nurse Practitioner 01/28/21 Team Status: Active Member Role Status Dates NON STAFF Primary Care Provider Active Team Status: Inactive Member Role Status Dates NON STAFF Primary Care Provider Active Start: December 09, 2023 End: December 09, 2023 Ivette Davis APRN Attending Provider Active S tart: December 09, 2023 End: December 09, 2023 Team Status: Inactive Member Role Status Dates NON STAFF Primary Care Provider Active Start: April 12, 2024 End: April 12, 2024 Billie Riley APRN Attending Provider Active Start: April 12, 2024 End: April 12, 2024 Team Status: Inactive Member Role Status Dates NON STAFF Primary Care Provider Active Start: April 21, 2024 End: April 21, 2024 Billie Riley APRN Attending Provider Active Start: April 21, 2024 End: April 21, 2024 Goals (unrecognized section and content) Goals may be documented in a n alternate sectionGoals may be documented in an alternate sectionGoals may be documented in an alternate section Reason for Visit (unrecogniz ed section and content) Reason Comments follow up visit FOR RECORDS PERTAINING TO PATIENTS WHO ARE OR HAVE BEEN ENROLLED IN A CHEMICAL DEPENDENCY/SUBSTANCEABUSE PROGRAM, SOME INFORMATION MAY BE OMITTED. This clinical summary was aggregated from multiple sources. Caution should be exercised in using it in the provision of clinical care. This summary normalizes information from multiple sources, and as a consequence, information in this document may materially change the coding, format and clinical context of patient data. In addition, data may be omitted in some cases. CLINICAL DECISIONS SHOULD BE BASED ON THE PRIMARY CLINICAL RECORDS. [facility]. provides no warranty or guarantee of the accuracy or completeness of information in this document.
== END 2024-06-07 18:23 | disposition home or self-care (01) ==
LOC: LAB 18:22
PROVIDERS: Visit Provider Obstetrics & Gynecology
DX: Z01.419 Encounter for gynecological examination (general) (routine) without abnormal findings (principal)
CPT/HCPCS: 88175